=== PATIENT | male | born 1990 | race Asian ===

== ENCOUNTER 2020-03-24 14:39 | Emergency (ER) | payer MEDICAID ==
[~2020-03-24] VITALS: Ht 175.3 cm; Wt 75.9 kg
[2020-03-24] MEDS ORDERED: BACTDSB PO (14:49)
[2020-03-24] MEDS ORDERED: LIDOCAINE 1% 10 ML VIAL ID ONE (18:30)
[2020-03-24 19:30] VITALS: BP 132/85
== END 2020-03-24 19:48 | disposition home or self-care (01) ==
LOC: EMS 14:50
DX: L02.411 Cutaneous abscess of right axilla (principal); L03.111 Cellulitis of right axilla; F17.210 Nicotine dependence, cigarettes, uncomplicated
CPT/HCPCS: 10060; 99283

== ENCOUNTER 2024-06-11 14:36 | Emergency (ER) | payer MEDICAID ==
[~2024-06-11] VITALS: Ht 175.3 cm; Wt 77.3 kg
[~2024-06-11 14:36] MED LIST: BACTDSB PO
[2024-06-11 14:58] VITALS: BP 156/86; PULSE 73; RESP 18; TEMP 98.5; O2SAT 98
== END 2024-06-11 16:15 | disposition home or self-care (01) ==
LOC: EMS 14:36
DX: S61.511A Laceration without foreign body of right wrist, initial encounter (principal); W25.XXXA Contact with sharp glass, initial encounter; Y93.89 Activity, other specified; Y92.89 Other specified places as the place of occurrence of the external cause; Y99.8 Other external cause status
CPT/HCPCS: 12001; 99282; Z7502